=== PATIENT | female | born 1935 | race Caucasian/White ===

== ENCOUNTER → 2019-03-16 08:05 | Outpatient (CLI) | payer MEDICARE, OTHER ==
[2013-12-20 04:37] VITALS: BMI 28.0
[~2019-03-16 08:05] MED LIST: BAYER CHEWABLE81 MG PO; CATAPRES0.1 MG PO; COZAAR100 MG PO; DICLOFENAC SODI50 MG PO; HYDROCHLOROTHIA25 MG PO; NORVASC5 MG PO; PLAVIX75 MG PO; POTASSIUM CHLO10 ME1 PO; PROTONIX40 MG PO; SYNTHROID100 MCG PO
--- NOTE | 2019-03-28 14:31 | ST ---
PATIENT:ROSENDO MALDONADO MEDICAL RECORD: [id number] SEX: F LOCATION:[facility] ORDER #: ADMISSION DATE: 03/16/19 AGE OF PATIENT: 84 REFERRING PHYSICIAN: INTERPRETING PHYSICIAN: KYLER CASTRO MD DATE OF SERVICE: 03/16/2019 PROCEDURE: Nuclear stress test. INDICATIONS: Angina, coronary artery disease, shortness of breath. She was exercised on standard Lexiscan protocol with 33 mCi of sestamibi injected at peak stress, 11 mCi used previously for rest images. FINDINGS: Gated SPECT reveals preserved ejection fraction at 86% with good wall motion and thickening and brightening throughout all segments. SPECT imaging: Cardiolite was used as myocardial perfusion agent. There is homogeneous uptake throughout all segments at rest and stress with no evidence of inducible ischemia or previous infarction. OVERALL IMPRESSION: 1. This is a normal nuclear stress test with no evidence of inducible ischemia or previous infarction. 2. Gated SPECT reveals a preserved ejection fraction at 86%. In this patient with ongoing symptomatology, the current scan does not suggest the presence of hemodynamically significant coronary artery disease. Evaluate noncardiac etiology of chest pain. TRANSINT:[id number] Voice Confirmation ID: [id number] DOCUMENT ID: [id number] KYLER CASTRO MD at 1431 CC: NIMA SHAW [id number] DICTATION DATE: 03/16/19 1535 FURNACE FITTER: 03/17/19 0026 DEP CLI 03/16/19 [facility] [address] [place] [address]
== END | disposition home or self-care (01) ==
LOC: D.HCCARDIO 08:05
PROVIDERS: ATTEND Internal Medicine Interventional Cardiology
DX: I25.10 Atherosclerotic heart disease of native coronary artery without angina pectoris (principal)

== ENCOUNTER → 2019-06-25 09:10 | Outpatient (CLI) | payer MEDICARE, OTHER ==
[2013-12-20 04:37] VITALS: BMI 28.0
== END | disposition home or self-care (01) ==
LOC: D.RAD 06-12 10:00
PROVIDERS: ATTEND Internal Medicine Gastroenterology
DX: R13.10 Dysphagia, unspecified (principal); R10.13 Epigastric pain; R12 Heartburn

== ENCOUNTER 2019-09-10 06:55 | Day surgery (SDC) | payer MEDICARE, OTHER ==
[~2019-09-10] VITALS: Ht 165.1 cm; Wt 60.5 kg
[2019-09-10 07:33] LABS: BASOPHILS 0.5 % (0-2); EOSINOPHILS 6.2 % (0-7); HEMATOCRIT 38.2 % (36.0-48.0); HEMOGLOBIN 12.4 g/dL (12-16); LYMPHOCYTES 43.8 % (15-50); MCH 30.3 pg (26.0-34.0); MCHC 32.5 g/dL (31.0-37.0); MCV 93.4 fL (80.0-100.0); MEAN PLATELET VOLUME 10.1 fL (7.4-10.4); MONOCYTES 12.1 % (2-11); NEUTROPHILS 37.4 % (40-80); PLATELET COUNT 211 10x3/uL (130-400); RBC 4.09 10x6/uL (4.00-5.40); RDW 13.5 % (11.5-14.5); WBC 4.1 10x3/uL (4.8-10.8)
[2019-09-10 08:20] LABS: ALBUMIN 3.7 g/dL (3.4-5.0); ANION GAP 12.8 mmol/L (8-16); BILIRUBIN - TOTAL 0.39 mg/dL (0.2-1.3); CALCIUM 9.9 mg/dL (8.5-10.1); CARBON DIOXIDE 26.3 mmol/L (21.0-32.0); CREATININE - SERUM 1.1 mg/dL (0.6-1.3); POTASSIUM - SERUM 4.1 mmol/L (3.5-5.1); PROTEIN - SERUM 7.8 g/dL (6.4-8.2)
[2019-09-10 08:41] VITALS: BP 140/74; Ht 165.1 cm; Wt 60.5 kg
--- NOTE | 2019-09-10 11:28 | NUR ---
1105 IV DC'D. CATHETER TIP INTACT. NO BLEEDING AT SITE. BANDAID APPLIED.
--- NOTE | 2019-09-10 16:48 | OP ---
PATIENT NAME: ROSENDO MALDONADO MEDICAL RECORD: [id number] :33 LOCATION:[facility] ADMISSION DATE: SURGEON: MIYA TIWARI DO DATE OF OPERATION: 09/10/2019 PROCEDURE: EGD with biopsies and balloon dilation. INDICATIONS FOR PROCEDURE: Heartburn, epigastric pain, dysphagia. SCOPE: Olympus video gastroscope. MEDICATIONS: Propofol 140 mg IV per anesthesia. ESTIMATED BLOOD LOSS: Minimal. COMPLICATIONS: None. FINDINGS: Informed consent was given. The patient was made comfortable with the above medication. After reaching an adequate level of sedation by slow IV push, the patient was placed on her left side. The endoscope was advanced under direct visualization through the mouth to the second portion of the duodenum. The esophagus appeared normal down to the GE junction. At the GE junction, there was an esophageal ring, which measured approximately 11-12 mm in diameter. The endoscope was able to traverse the site. A CRE dilating balloon was placed through the working channel of the endoscope and the ring was dilated up to approximately 18.5 mm in diameter successfully. The endoscope was advanced into the stomach and retroflexed to view the cardia and fundus were a large hiatal hernia was present. It appeared to be a sliding type hernia. The body of the stomach appeared normal. In the antrum and prepyloric region, there was some erythema and granularity consistent with mild gastritis. Cold forceps biopsies were taken to submit for histopathology and to rule out the presence of H. pylori. The endoscope was advanced beyond the pylorus into the duodenum, which appeared normal to the second portion. The endoscope was withdrawn from the patient. The patient tolerated the procedure well and there were no complications. IMPRESSION: 1. 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 This was dilated to 18.5 mm maximum diameter. 2. Large hiatal hernia. 3. Gastritis involving the antrum and prepylorus. PLAN AND RECOMMENDATIONS: 1. Discharge home when recovery parameters are met. 2. Follow up biopsy specimen results. 3. GERD diet and reflux precautions. 4. Omeprazole 40 mg daily times 60 days. After that time [id number] Pepcid as needed should be adequate for heartburn symptoms. 5. Follow up in GI clinic in 1 month's time. If oropharyngeal dysphagia is still a prominent symptom, consider a modified barium swallow with speech therapy. TRANSINT:[id number] Voice Confirmation ID: [id number] DOCUMENT ID: [id number] OPERATIVE REPORT [id number] ROSEDNO MALDONADO NATHAN A DO at 1648 CC: [id number] DICTATION DATE: 09/10/19 1027 IMAGING SCIENCE PROFESSOR: 09/10/19 1313 [facility] 09/10/19 [place] [id number] [place] [id number]
== END 2019-09-10 11:25 | disposition home or self-care (01) ==
LOC: D.OPS 06:55
PROVIDERS: Anesthesiology; ATTEND Internal Medicine Gastroenterology
DX: R12 Heartburn (principal); R13.10 Dysphagia, unspecified

== ENCOUNTER → 2019-12-07 13:21 | Outpatient (CLI) | payer MEDICARE, OTHER ==
[2019-09-10 08:41] VITALS: BMI 22.1
== END | disposition home or self-care (01) ==
LOC: D.MRI 13:21
PROVIDERS: ATTEND Family Medicine
DX: G95.20 Unspecified cord compression (principal); M54.9 Dorsalgia, unspecified

== ENCOUNTER → 2020-04-03 12:55 | Outpatient (CLI) | payer MEDICARE, OTHER ==
[2019-09-10 08:41] VITALS: BMI 22.1
== END | disposition home or self-care (01) ==
LOC: D.US 12:55
PROVIDERS: ATTEND Family Medicine
DX: I89.0 Lymphedema, not elsewhere classified (principal)